=== PATIENT | male | born 1975 | race Caucasian/White ===

== ENCOUNTER 2020-01-26 09:18 | Emergency (ER) | payer OTHER ==
[~2020-01-26] VITALS: Ht 175.3 cm; Wt 96.2 kg
[2020-01-26] MEDS ORDERED: NORCO 5-325 TA1 EAC2 PO (10:14)
[2020-01-26] MEDS ORDERED: BACTRIM DS TAB1 EACH PO (10:14)
[2020-01-26 10:18] VITALS: BP 139/75
== END 2020-01-26 10:19 | disposition home or self-care (01) ==
LOC: M.ERS 09:18
DX: S90.425A Blister (nonthermal), left lesser toe(s), initial encounter (principal); L03.116 Cellulitis of left lower limb; Z88.0 Allergy status to penicillin; X58.XXXA Exposure to other specified factors, initial encounter; Y93.89 Activity, other specified; Y92.89 Other specified places as the place of occurrence of the external cause; Y99.8 Other external cause status

== ENCOUNTER 2020-12-07 08:47 | Inpatient (IN) | payer OTHER ==
[~2020-12-07] VITALS: Ht 175.3 cm; Wt 99.8 kg
[~2020-12-07 08:47] MED LIST: BACTRIM DS TAB1 EACH PO; NORCO 5-325 TA1 EAC2 PO
[2020-12-07 08:58] VITALS: BP 125/89
[2020-12-07 09:40] LABS: HEMATOCRIT 46.4 % (42.0-52.0); HEMOGLOBIN 15.5 gm/dL (14.0-18.0); MCH 30.9 pg (26.0-34.0); MCHC 33.5 g/dL (28.0-37.0); MCV 92.4 fL (80.0-100.0); NUCLEATED RBCS 0 /100WBC; PLATELET COUNT* 267 thou/uL (150-400); RBC 5.02 mil/uL (4.50-6.00); RDW-CV 13.2 % (10.5-14.5); WBC 16.9 thou/uL (4.0-11.0)
[2020-12-07 10:04] LABS: CALCIUM 8.5 mg/dL (8.5-10.1); CREATININE 1.2 mg/dL (0.6-1.3); POTASSIUM 3.8 mmol/L (3.5-5.1)
[2020-12-07 10:09] LABS: ALBUMIN 2.9 g/dL (3.4-5.0); TOTAL BILIRUBIN 0.3 mg/dL (<0.1-1.0); TOTAL PROTEIN 7.5 g/dL (6.4-8.2)
[2020-12-07 10:59] LABS: ABSOLUTE MONOCYTES 0.5 thou/uL (0.0-1.2); ABSOLUTE NEUTROPHILS 14.4 thou/uL (1.6-8.1); ANISOCYTOSIS 1+; PLATELET ESTIMATE ADEQUATE; POIKILOCYTOSIS 1+
[2020-12-07 12:33] VITALS: BP 128/80
[2020-12-07 12:40] VITALS: BP 128/80
[2020-12-07 16:27] VITALS: BP 119/76
[2020-12-07 20:00] VITALS: BP 132/91
[2020-12-08] VITALS (7 sets, daily range): BP systolic 120–137; BP diastolic 72–94
[2020-12-08 05:14] LABS: HEMATOCRIT 41.5 % (42.0-52.0); HEMOGLOBIN 14.5 gm/dL (14.0-18.0); MCHC 34.9 g/dL (28.0-37.0); MCV 91.5 fL (80.0-100.0); MPV 6.9 fl. (7.2-11.1); RBC 4.54 mil/uL (4.50-6.00); RDW-CV 12.8 % (10.5-14.5); WBC 19.5 thou/uL (4.0-11.0)
[2020-12-08 05:25] LABS: CALCIUM 8.9 mg/dL (8.5-10.1); CREATININE 1.1 mg/dL (0.6-1.3); POTASSIUM 4.2 mmol/L (3.5-5.1)
--- NOTE | 2020-12-08 10:00 | EKG ---
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
[2020-12-09] VITALS: BP 123/82
[2020-12-09 04:00] VITALS: BP 119/80
[2020-12-09 06:09] LABS: HEMATOCRIT 40.8 % (42.0-52.0); HEMOGLOBIN 14.1 gm/dL (14.0-18.0); MCH 31.7 pg (26.0-34.0); MCHC 34.7 g/dL (28.0-37.0); MCV 91.4 fL (80.0-100.0); MPV 6.9 fl. (7.2-11.1); RBC 4.46 mil/uL (4.50-6.00); RDW-CV 12.6 % (10.5-14.5); WBC 15.2 thou/uL (4.0-11.0)
[2020-12-09 06:21] LABS: ALBUMIN 2.4 g/dL (3.4-5.0); CALCIUM 8.7 mg/dL (8.5-10.1); POTASSIUM 4.3 mmol/L (3.5-5.1); TOTAL BILIRUBIN 0.5 mg/dL (<0.1-1.0); TOTAL PROTEIN 7.1 g/dL (6.4-8.2)
[2020-12-09 08:23] VITALS: BP 119/83
[2020-12-09 12:00] VITALS: BP 123/79
[2020-12-09 18:46] VITALS: BP 119/81
[2020-12-09 20:00] VITALS: BP 142/96
[2020-12-10 00:46] VITALS: BP 134/84
[2020-12-10 03:58] VITALS: BP 118/77
[2020-12-10 07:12] LABS: HEMATOCRIT 48.1 % (42.0-52.0); MCH 31.1 pg (26.0-34.0); MCHC 33.3 g/dL (28.0-37.0); MCV 93.5 fL (80.0-100.0); MPV 7.4 fl. (7.2-11.1); RBC 5.14 mil/uL (4.50-6.00); RDW-CV 12.9 % (10.5-14.5); WBC 22.7 thou/uL (4.0-11.0)
[2020-12-10 07:25] LABS: PCO2 39.2 mmHg (35.0-45.0); PO2 61.7 mmHg (75.0-100.0); pH 7.441 (7.340-7.450)
[2020-12-10 07:31] LABS: CALCIUM 9.4 mg/dL (8.5-10.1); CREATININE 1.1 mg/dL (0.6-1.3); POTASSIUM 4.6 mmol/L (3.5-5.1)
[2020-12-10 08:00] VITALS: BP 121/86
[2020-12-10 12:00] VITALS: BP 108/64
[2020-12-10 16:00] VITALS: BP 111/65
[2020-12-10 20:00] VITALS: BP 111/73
[2020-12-11] VITALS: BP 105/70
[2020-12-11 04:00] VITALS: BP 110/68
[2020-12-11 05:00] LABS: HEMATOCRIT 40.8 % (42.0-52.0); MCH 31.1 pg (26.0-34.0); MCHC 33.8 g/dL (28.0-37.0); MCV 91.9 fL (80.0-100.0); MPV 6.9 fl. (7.2-11.1); RBC 4.44 mil/uL (4.50-6.00); RDW-CV 12.6 % (10.5-14.5); WBC 15.3 thou/uL (4.0-11.0)
[2020-12-11 05:15] LABS: CALCIUM 8.3 mg/dL (8.5-10.1); CREATININE 1.1 mg/dL (0.6-1.3); POTASSIUM 4.5 mmol/L (3.5-5.1)
[2020-12-11 05:28] LABS: HEMOGLOBIN 13.8 gm/dL (14.0-18.0)
[2020-12-11 08:00] VITALS: BP 106/63; BP 117/72
[2020-12-11 12:00] VITALS: BP 117/72
[2020-12-11 17:37] LABS: APTT 27.6 Seconds (25.0-31.3); INR 1.1; PROTIME 11.4 Seconds (9.20-11.50)
[2020-12-11 20:00] VITALS: BP 127/83
[2020-12-12] VITALS: BP 114/72
[2020-12-12 04:48] VITALS: BP 115/75
[2020-12-12 08:00] VITALS: BP 125/81
[2020-12-12 10:23] LABS: HEMATOCRIT 42.8 % (42.0-52.0); HEMOGLOBIN 14.4 gm/dL (14.0-18.0); MCH 30.9 pg (26.0-34.0); MCHC 33.7 g/dL (28.0-37.0); MCV 91.7 fL (80.0-100.0); NUCLEATED RBCS 0 /100WBC; RBC 4.67 mil/uL (4.50-6.00); RDW-CV 12.5 % (10.5-14.5); WBC 15.9 thou/uL (4.0-11.0)
[2020-12-12 10:24] LABS: PLATELET COUNT* 420 thou/uL (150-400)
[2020-12-12 10:34] LABS: CALCIUM 8.7 mg/dL (8.5-10.1); POTASSIUM 4.4 mmol/L (3.5-5.1)
[2020-12-12 10:53] LABS: ABSOLUTE LYMPHOCYTES 1.6 thou/uL (0.8-5.3); ABSOLUTE MONOCYTES 0.2 thou/uL (0.0-1.2); ABSOLUTE NEUTROPHILS 14.2 thou/uL (1.6-8.1)
[2020-12-12 10:54] LABS: PLATELET ESTIMATE INCREASED
[2020-12-12 12:15] VITALS: BP 116/73
[2020-12-12 16:11] VITALS: BP 116/71
[2020-12-12 19:50] VITALS: BP 120/74
--- NOTE | 2020-12-12 22:41 | CON ---
[address] [address] CONSULTATION Name: SHANKAR CAGE Room: [address] IN M.R.#: [id number] Admission: 12/07/20 Attend Phys: Ellis Mcginnis Discharge: Date of : 73 Report #: [id number] THIS REPORT FOR: cc: FAM - No family physician/PCP FAM - No family physician/PCP Florentin Kennedy MD ~ DATE OF CONSULTATION: 12/11/2020 Consult has been requested by Dr. Johnson. INDICATION FOR CONSULTATION: Acute hypoxemic respiratory failure secondary to COVID-19. HISTORY OF PRESENT ILLNESS: This is a 45-year-old gentleman. He does not have any past medical history and only has a remote history of smoking. He has not been vaccinated for COVID-19, now admitted here with shortness of breath, was maintaining O2 saturation around 88-90 percent on room air on arrival. He has been a progressive increase in her shortness of breath as well as an oxygen needs since then. He is now very hypoxemic, requiring up to 100% FiO2 with a heated high-flow nasal cannula and high flow oxygen. The patient has used BiPAP as well; however, he is uncomfortable with BiPAP. The patient currently is stable on heated high-flow nasal cannula with high flow oxygen. He is comfortably, sitting in a chair. He does have some sputum production. He does not know the sputum color. He does not have chest pain. He does not have upper respiratory complaints at this time. He only has mild swelling of lower extremities, no calf pain. Has had fever earlier. REVIEW OF SYSTEMS: For 12 points is negative except as mentioned above. PAST MEDICAL HISTORY: He has no past medical history. SOCIAL HISTORY: He says he smoked occasionally more than 30 years ago. Since then has not been a smoker. No known history of heavy alcohol use or illegal drug use. CURRENT MEDICATIONS: List in [facility] reviewed. HOME MEDICATIONS: There are no known home medications. FAMILY HISTORY: No pertinent family history. PHYSICAL EXAMINATION: GENERAL: He is alert, awake and oriented, does not appear to be in any distress at this time; however, he is requiring up to 100% FiO2 with 55 liters flow on a heated high-flow nasal cannula to maintain O2 saturation around 90-91%. [place] [address] CONSULTATION Name: LIA CAGEN Room: [address] IN [facility]#: [id number] Admission: 12/07/20 Attend Phys: Ellis Mcginnis Discharge: Date of : 73 Report #: [id number] VITAL SIGNS: Has a pulse of 98 and a blood pressure of 117/72. He does have an elevated respiratory rate of 24. He is afebrile at this time with a temperature of 36.7. HEENT: Head is normocephalic and atraumatic. Pupils are equal. NECK: Does not show raised JVP asymmetry, mass or lymph nodes. CHEST: Symmetrical expansion on inspection and palpation. On auscultation, breath sounds are decreased. Expirations are prolonged. Breath sounds do appear to be significantly diminished. HEART: Regular. There is no murmur. ABDOMEN: Soft and nontender. EXTREMITIES: Lower extremities show trace edema, no calf tenderness. SKIN: Dry and intact. NEUROLOGIC: Moves all extremities bilaterally equally and spontaneously with no focal deficit identified. LABORATORY DATA: The patient's chest x-rays are reviewed and are consistent with ARDS secondary to COVID-19. The patient's lab work in [facility] reviewed. Arterial blood gas in [facility] reviewed. ASSESSMENT AND PLAN: 1. Acute hypoxemic respiratory failure secondary to COVID-19. We will continue to titrate oxygen. Encourage prone positioning out of bed to chair as tolerated. Avoid sleeping supine. The patient desires not use BiPAP unless essential, will proceed accordingly. 2. COVID-19 leading to acute respiratory distress syndrome. Considering that he is severely hypoxemic and as below, I feel that he also has some bronchospasm, we will go ahead and increase his dexamethasone dose to 8 mg b.i.d. I also increased his nebulized bronchodilators. He received five doses of remdesivir. I recommend giving him five more, watch liver function tests. I feel that it will be appropriate to give him Actemra as well; however, we are out of Actemra at this time. If there is no improvement in his oxygen needs by the time Actemra becomes available again, then I recommend giving him Actemra as well. He received 1 unit of convalescent plasma earlier. I do not feel strongly either way regarding giving him or holding off on the second unit. 3. Pulmonary infiltrates. I will go ahead and start him on Levaquin as well. We will do a sputum culture and nasal swab for methicillin-resistant Staphylococcus aureus. 4. Bronchospasm. I feel that the component of this as well. See discussion above. 5. Deep venous thrombosis prophylaxis/evaluation for thromboembolic phenomena. I obtained coags at this time. The D-dimer is not elevated; therefore, I agree with current dose of Lovenox. 6. Clostridium difficile prophylaxis. We will start Lactinex. 7. Gastrointestinal prophylaxis. We will add Pepcid. [address] [place] [address] CONSULTATION Name: CAGESHANKAR Room: [address] IN ..#: [id number] Admission: 12/07/20 Attend Phys: Ellis Mcginnis Discharge: Date of : 73 Report #: [id number] The patient is critically ill at this time. Total time spent providing critical care to this patient today exceeds 36 minutes. <ELECTRONICALLY SIGNED> By: Florentin Kennedy MD 12/12/20 2241 [id number] [id number] Kennedy MD /nt
[2020-12-13 00:42] VITALS: BP 113/72
[2020-12-13 04:26] VITALS: BP 118/76
[2020-12-13 05:58] LABS: ABSOLUTE LYMPHOCYTES 1.5 thou/uL (0.8-5.3); ABSOLUTE MONOCYTES 1.1 thou/uL (0.0-1.2); ABSOLUTE NEUTROPHILS 13.6 thou/uL (1.6-8.1); BASOPHILS 0.1 %; EOSINOPHILS 0.1 %; HEMATOCRIT 39.8 % (42.0-52.0); HEMOGLOBIN 13.6 gm/dL (14.0-18.0); LYMPHOCYTES 9.1 %; MCH 31.2 pg (26.0-34.0); MCHC 34.2 g/dL (28.0-37.0); MCV 91.3 fL (80.0-100.0); MONOCYTES 6.6 %; MPV 7.1 fl. (7.2-11.1); NUCLEATED RBCS 0 /100WBC; PLATELET COUNT* 428 thou/uL (150-400); POLYS 84.1 %; RBC 4.36 mil/uL (4.50-6.00); RDW-CV 12.3 % (10.5-14.5); WBC 16.2 thou/uL (4.0-11.0)
[2020-12-13 06:24] LABS: ALBUMIN 2.3 g/dL (3.4-5.0); CALCIUM 8.3 mg/dL (8.5-10.1); CREATININE 1.1 mg/dL (0.6-1.3); MAGNESIUM 2.1 mg/dL (1.8-2.4); POTASSIUM 4.6 mmol/L (3.5-5.1); TOTAL BILIRUBIN 0.3 mg/dL (<0.1-1.0); TOTAL PROTEIN 6.6 g/dL (6.4-8.2)
[2020-12-13 08:00] VITALS: BP 115/77
[2020-12-13 12:46] VITALS: BP 124/73
[2020-12-13 16:23] VITALS: BP 126/81
[2020-12-13 20:00] VITALS: BP 147/87
[2020-12-14 00:33] VITALS: BP 113/62
[2020-12-14 04:30] VITALS: BP 102/63
[2020-12-14 08:00] VITALS: BP 133/82
[2020-12-14 14:19] VITALS: BP 117/78
[2020-12-14 19:35] VITALS: BP 124/79
[2020-12-14 20:00] VITALS: BP 137/79
[2020-12-15 02:11] VITALS: BP 105/62
[2020-12-15 04:47] VITALS: BP 129/76
[2020-12-15 08:42] VITALS: BP 125/82
[2020-12-15 16:00] VITALS: BP 127/74
[2020-12-15 20:00] VITALS: BP 134/87
[2020-12-16] VITALS: BP 111/62
[2020-12-16 04:00] VITALS: BP 111/58
[2020-12-16 05:50] LABS: HEMATOCRIT 41.4 % (42.0-52.0); HEMOGLOBIN 14.1 gm/dL (14.0-18.0); MCH 31.7 pg (26.0-34.0); MCHC 34.1 g/dL (28.0-37.0); MCV 93.1 fL (80.0-100.0); MPV 7.1 fl. (7.2-11.1); NUCLEATED RBCS 0 /100WBC; PLATELET COUNT* 448 thou/uL (150-400); RBC 4.44 mil/uL (4.50-6.00); RDW-CV 12.8 % (10.5-14.5); WBC 17.6 thou/uL (4.0-11.0)
[2020-12-16 06:01] LABS: CALCIUM 8.5 mg/dL (8.5-10.1); CREATININE 1.1 mg/dL (0.6-1.3); PHOSPHORUS* 3.2 mg/dL (2.5-4.9)
[2020-12-16 06:06] LABS: ALBUMIN 2.4 g/dL (3.4-5.0); CALCIUM 8.4 mg/dL (8.5-10.1); CREATININE 1.1 mg/dL (0.6-1.3); POTASSIUM 5.3 mmol/L (3.5-5.1); TOTAL BILIRUBIN 0.3 mg/dL (<0.1-1.0); TOTAL PROTEIN 5.7 g/dL (6.4-8.2)
[2020-12-16 06:47] LABS: ABSOLUTE LYMPHOCYTES 1.2 thou/uL (0.8-5.3); ABSOLUTE MONOCYTES 0.2 thou/uL (0.0-1.2); ABSOLUTE NEUTROPHILS 16.2 thou/uL (1.6-8.1); MYELOCYTES 1 %; PLATELET ESTIMATE INCREASED
[2020-12-16 06:48] LABS: ANISOCYTOSIS 1+; POIKILOCYTOSIS 1+
[2020-12-16 08:00] VITALS: BP 120/77
[2020-12-16 11:43] VITALS: BP 113/54
[2020-12-16 15:53] VITALS: BP 129/79; BP 137/68
[2020-12-16 20:00] VITALS: BP 134/89
[2020-12-17 00:21] VITALS: BP 106/79
[2020-12-17 04:30] VITALS: BP 115/68
[2020-12-17 07:57] VITALS: BP 127/83
[2020-12-17 12:19] VITALS: BP 131/88
[2020-12-17 16:20] VITALS: BP 121/75
[2020-12-17 20:00] VITALS: BP 138/84
[2020-12-18 01:15] VITALS: BP 121/75
[2020-12-18 05:02] VITALS: BP 130/80
[2020-12-18 05:05] LABS: ABSOLUTE LYMPHOCYTES 1.1 thou/uL (0.8-5.3); ABSOLUTE MONOCYTES 1.1 thou/uL (0.0-1.2); ABSOLUTE NEUTROPHILS 16.9 thou/uL (1.6-8.1); BASOPHILS 0.1 %; HEMATOCRIT 43.2 % (42.0-52.0); HEMOGLOBIN 14.2 gm/dL (14.0-18.0); MCV 93.9 fL (80.0-100.0); MONOCYTES 5.8 %; MPV 7.3 fl. (7.2-11.1); NUCLEATED RBCS 0 /100WBC; PLATELET COUNT* 434 thou/uL (150-400); POLYS 88.1 %; RDW-CV 12.9 % (10.5-14.5); WBC 19.2 thou/uL (4.0-11.0)
[2020-12-18 05:22] LABS: ALBUMIN 2.5 g/dL (3.4-5.0); CALCIUM 8.3 mg/dL (8.5-10.1); CREATININE 1.1 mg/dL (0.6-1.3); MAGNESIUM 2.1 mg/dL (1.8-2.4); POTASSIUM 4.9 mmol/L (3.5-5.1); TOTAL BILIRUBIN 0.4 mg/dL (<0.1-1.0)
[2020-12-18 08:00] VITALS: BP 137/94
[2020-12-18 12:00] VITALS: BP 126/85
[2020-12-18 16:00] VITALS: BP 133/88
[2020-12-18 20:00] VITALS: BP 124/76
[2020-12-19] VITALS: BP 122/63
[2020-12-19 04:20] VITALS: BP 123/79
[2020-12-19 05:12] LABS: HEMATOCRIT 42.2 % (42.0-52.0); HEMOGLOBIN 13.8 gm/dL (14.0-18.0); MCH 30.7 pg (26.0-34.0); MCHC 32.7 g/dL (28.0-37.0); MCV 93.8 fL (80.0-100.0); MPV 7.2 fl. (7.2-11.1); RBC 4.5 mil/uL (4.50-6.00); RDW-CV 13.1 % (10.5-14.5)
[2020-12-19 05:23] LABS: CALCIUM 8.4 mg/dL (8.5-10.1); CREATININE 1.1 mg/dL (0.6-1.3); POTASSIUM 4.5 mmol/L (3.5-5.1)
[2020-12-19 08:00] VITALS: BP 133/91
[2020-12-19 12:00] VITALS: BP 147/85
[2020-12-19] MEDS ORDERED: TESSALON PERLE100 MG PO (15:11)
[2020-12-19] MEDS ORDERED: PROAIR HFA8.5 GM INH (15:12)
[2020-12-19] MEDS ORDERED: PREDNISONE 10 M10 MG PO (15:14)
[2020-12-19 15:55] VITALS: BP 147/85
[2020-12-19 16:00] VITALS: BP 133/80
== END 2020-12-19 19:00 | disposition home or self-care (01) | DRG 177 ==
LOC: M.ERS 08:47 → M.TBA-ER 10:37 → M.ORTHSURG 12:40
PROVIDERS: Family Medicine; Internal Medicine; Internal Medicine Critical Care Medicine; ADMIT Internal Medicine; ATTEND Internal Medicine
PROC: XW033E5 Introduction of Remdesivir Anti-infective into Peripheral Vein, Percutaneous Approach, New Technology Group 5 (ICD-10-PCS; principal; 2020-12-07)
PROC: XW13325 Transfusion of Convalescent Plasma (Nonautologous) into Peripheral Vein, Percutaneous Approach, New Technology Group 5 (ICD-10-PCS; 2020-12-08)
PROC: 5A0935A Assistance with Respiratory Ventilation, Less than 24 Consecutive Hours, High Flow/Velocity Cannula (ICD-10-PCS; 2020-12-08)
PROC: 5A0935A Assistance with Respiratory Ventilation, Less than 24 Consecutive Hours, High Flow/Velocity Cannula (ICD-10-PCS; 2020-12-09)
PROC: 5A0935A Assistance with Respiratory Ventilation, Less than 24 Consecutive Hours, High Flow/Velocity Cannula (ICD-10-PCS; 2020-12-10)
PROC: 5A09357 Assistance with Respiratory Ventilation, Less than 24 Consecutive Hours, Continuous Positive Airway Pressure (ICD-10-PCS; 2020-12-10)
PROC: 5A0945A Assistance with Respiratory Ventilation, 24-96 Consecutive Hours, High Flow/Velocity Cannula (ICD-10-PCS; 2020-12-11)
PROC: 5A0935A Assistance with Respiratory Ventilation, Less than 24 Consecutive Hours, High Flow/Velocity Cannula (ICD-10-PCS; 2020-12-11)
PROC: 5A09357 Assistance with Respiratory Ventilation, Less than 24 Consecutive Hours, Continuous Positive Airway Pressure (ICD-10-PCS; 2020-12-13)
PROC: 5A0945A Assistance with Respiratory Ventilation, 24-96 Consecutive Hours, High Flow/Velocity Cannula (ICD-10-PCS; 2020-12-13)
PROC: 5A0935A Assistance with Respiratory Ventilation, Less than 24 Consecutive Hours, High Flow/Velocity Cannula (ICD-10-PCS; 2020-12-16)
PROC: 5A0945A Assistance with Respiratory Ventilation, 24-96 Consecutive Hours, High Flow/Velocity Cannula (ICD-10-PCS; 2020-12-17)
DX: U07.1 COVID-19 (principal); J80 Acute respiratory distress syndrome; J12.82 Pneumonia due to coronavirus disease 2019; N17.9 Acute kidney failure, unspecified; J98.01 Acute bronchospasm; Z88.0 Allergy status to penicillin; Z87.891 Personal history of nicotine dependence